=== PATIENT | male | born 1970 | race Asian ===

== ENCOUNTER 2019-10-08 23:37 | Emergency (ER) | payer SELFPAY ==
[2019-10-09 02:27] LABS: Basophils # (Auto) 0.1 K/mm3 (0.0-0.1); Basophils % (Auto) 0.9 % (0.0-1.8); Eosinophils # (Auto) 0.4 K/mm3 (0.0-0.4); Eosinophils % (Auto) 4.9 % (0.0-4.3); Hematocrit 42.8 % (35.5-45.6); Hemoglobin 14.8 gm/dl (11.8-15.2); Lymphocytes # (Auto) 3.2 K/mm3 (1.2-5.4); Lymphocytes % (Auto) 36.3 % (13.4-35.0); Mean Corpuscular HGB Conc 35 % (32-34); Mean Corpuscular Volume 96 fl (84-94); Monocytes # (Auto) 0.9 K/mm3 (0.0-0.8); Monocytes % (Auto) 10.1 % (0.0-7.3); Platelet Count 312 K/mm3 (140-440); Red Blood Count 4.47 M/mm3 (3.65-5.03); Red Cell Distribution Width 13.3 % (13.2-15.2)
[2019-10-09 02:43] LABS: Blood Urea Nitrogen 21 mg/dL (9-20); Calcium 9.8 mg/dL (8.4-10.2); Hemolysis Index 24
[2019-10-09 02:45] LABS: BUN/Creatinine Ratio 35
[2019-10-09] MEDS ORDERED: SODIUM CHLORIDE 0.9% 1000 ML 1,000 ML IV ONE (04:53)
--- NOTE | 2019-10-09 07:07 | Emergency Department Report ---
ED General Adult HPI - General Chief complaint: Abdominal Pain Stated complaint: NO URINE OUTPUT 1014 FROM [facility] Time Seen by Provider: 10/09/19 06:19 Source: patient, EMS Mode of arrival: Stretcher Limitations: No Limitations - History of Present Illness Initial comments: Patient is 48 years old male with history of depression and suicidal ideation currently resides at [facility]. Patient brought to the emergency room for evaluation of generalized body pain mainly to the lower back and bilateral legs. Patient stated that pain is been going on for 2 weeks. Patient stated that he was told that his kidney is not doing well. Patient currently denying any fever, chills, nausea, vomiting or diarrhea. No chest pain or shortness of breath. - Related Data Previous Rx's Medication Instructions Recorded Last Taken Type Cyclobenzaprine HCl [Flexeril 5 MG 5 mg PO TID PRN #21 tab 10/09/19 Unknown Rx TAB] Naproxen [Naprosyn] 500 mg PO BID #14 tablet 10/09/19 Unknown Rx Allergies Allergy/AdvReac Type Severity Reaction Status Date / Time No Known Allergies Allergy Unverified 10/09/19 01:29 ED Review of Systems ROS: Stated complaint: NO URINE OUTPUT 1014 FROM [facility] Other details as noted in HPI Comment: All other systems reviewed and negative Constitutional: denies: chills, fever Respiratory: denies: cough, shortness of breath, SOB with exertion, SOB at rest, wheezing Cardiovascular: denies: chest pain, palpitations Gastrointestinal: denies: abdominal pain, nausea, vomiting, diarrhea, constipation, hematemesis, melena, hematochezia Musculoskeletal: back pain, arthralgia Neurological: denies: headache, weakness, numbness, paresthesias, confusion, abnormal gait Psychiatric: depression, suicidal thoughts. denies: auditory hallucinations, visual hallucinations, homicidal thoughts ED Past Medical Hx - Past Medical History Previous Medical History?: Yes Hx Hypertension: Yes Hx Renal Disease: Yes Hx Psychiatric Treatment: Yes (Depression) Additional medical history: Alcoholism - Surgical History Past Surgical History?: Yes Additional Surgical History: neck and back - Social History Smoking Status: Current Every Day Smoker Substance Use Type: Alcohol - Medications Home Medications: Home Medications Medication Instructions Recorded Confirmed Last Taken Type Cyclobenzaprine HCl [Flexeril 5 MG 5 mg PO TID PRN #21 tab 10/09/19 Unknown Rx TAB] Naproxen [Naprosyn] 500 mg PO BID #14 tablet 10/09/19 Unknown Rx ED Physical Exam - General Limitations: No Limitations General appearance: alert, in no apparent distress - Head Head exam: Present: atraumatic, normocephalic, normal inspection - Eye Eye exam: Present: normal appearance - ENT ENT exam: Present: normal exam, normal orophraynx, mucous membranes moist - Neck Neck exam: Present: normal inspection, full ROM. Absent: tenderness, meningismus - Respiratory Respiratory exam: Present: normal lung sounds bilaterally - Cardiovascular Cardiovascular Exam: Present: regular rate, normal rhythm, normal heart sounds - GI/Abdominal GI/Abdominal exam: Present: soft, normal bowel sounds. Absent: distended, tenderness, guarding, rebound, rigid, organomegaly, mass, bruit, pulsatile mass, hernia - Extremities Exam Extremities exam: Present: normal inspection, full ROM, normal capillary refill. Absent: tenderness, pedal edema, joint swelling, calf tenderness - Back Exam Back exam: Present: normal inspection, full ROM. Absent: CVA tenderness (R), CVA tenderness (L) - Neurological Exam Neurological exam: Present: alert, oriented X3, CN II-XII intact, normal gait, reflexes normal. Absent: motor sensory deficit - Psychiatric Psychiatric exam: Present: normal mood - Skin Skin exam: Present: warm, intact, normal color ED Course Vital Signs 10/09/19 10/09/19 10/09/19 01:02 02:03 03:35 Temperature 98 F 98.2 F Pulse Rate 96 H 87 Respiratory 18 18 Rate Blood Pressure 123/96 Blood Pressure 103/61 [Left] O2 Sat by Pulse 97 98 Oximetry 10/09/19 10/09/19 10/09/19 07:23 09:53 09:57 Temperature Pulse Rate 89 Respiratory 18 18 Rate Blood Pressure 117/74 Blood Pressure [Left] O2 Sat by Pulse 99 97 Oximetry 10/09/19 10/09/19 10:06 10:22 Temperature Pulse Rate Respiratory 18 Rate Blood Pressure 130/90 Blood Pressure [Left] O2 Sat by Pulse Oximetry ED Medical Decision Making - Lab Data Result diagrams: 10/09/19 02:01 10/09/19 02:01 - Medical Decision Making Patient is 48 years old male with history of depression and suicidal ideation currently resides at [facility]. Patient brought to the emergency room for evaluation of generalized body pain mainly to the lower back and bilateral legs. Patient stated that pain is been going on for 2 weeks. Patient stated that he was told that his kidney is not doing well. Patient currently denying any fever, chills, nausea, vomiting or diarrhea. No chest pain or shortness of breath. labs reviewed and unremarkable. Patient given toradol and stated that it helped his pain. Patient kidney function is unremarkable. Patient given prescription for Naprosyn and Flexeril and advised to follow-up with his primary doctor in the next 2 to 3 days and to return to the ER if he develop any new symptoms. Critical care attestation.: If time is entered above; I have spent that time in minutes in the direct care of this critically ill patient, excluding procedure time. ED Disposition Clinical Impression: Back pain Disposition: [id number] PSY HOSP/PSY UNIT Is pt being admited?: No Condition: Stable Instructions: Acute Low Back Pain (ED) Prescriptions: Cyclobenzaprine HCl [Flexeril 5 MG TAB] 5 mg PO TID PRN #21 tab PRN Reason: Muscle Spasm Naproxen [Naprosyn] 500 mg PO BID #14 tablet Referrals: PRIMARY CARE, [Primary Care Provider] - 3-5 Days
[2019-10-09 07:45] LABS: Bilirubin,Urine NEG (Negative); Blood,Urine NEG (Negative); Color,Urine Yellow (Yellow); Mucus,Urine FEW /HPF; Protein,Urine <15 mg/dL mg/dL (Negative); Urobilinogen,Urine < 2.0 mg/dL (<2.0)
[2019-10-09] MEDS ORDERED: KETOROLAC 30 MG/1 ML INJ IV ONE (09:31)
[2019-10-09 12:14] VITALS: BP 130/89
== END 2019-10-09 12:13 ==
LOC: ED 23:37
DX: M54.5 Low back pain (principal); I10 Essential (primary) hypertension; F32.9 Major depressive disorder, single episode, unspecified; N28.9 Disorder of kidney and ureter, unspecified; F17.200 Nicotine dependence, unspecified, uncomplicated; Z79.899 Other long term (current) drug therapy
CPT/HCPCS: 36415; 80048; 81001; 83690; 85025; 85045; 96361; 96374; 99284; J1885; J7030